=== PATIENT | female | born 1945 | race Caucasian/White ===

== ENCOUNTER 2022-01-08 18:50 | Outpatient (CLI) | payer MEDICARE, OTHER | END 2022-01-08 18:51 | disposition critical access hospital (66) | LOC: EMS 18:50 | DX: S99.912A Unspecified injury of left ankle, initial encounter (principal); W18.49XA Other slipping, tripping and stumbling without falling, initial encounter; Y93.01 Activity, walking, marching and hiking; Y92.008 Other place in unspecified non-institutional (private) residence as the place of occurrence of the external cause | CPT/HCPCS: A0425; A0427 ==

== ENCOUNTER 2022-01-08 19:31 | Emergency (ER) | payer MEDICARE, OTHER ==
--- NOTE | 2022-01-08 21:10 | ED Physician Documentation ---
PD HPI LOWER EXT INJURY - Stated complaint Stated Complaint: L ANKLE INJ - Chief complaint Chief Complaint: Trauma Ext - History obtained from History obtained from: Patient - History of Present Illness PD HPI LOW EXT INJURY LOCATION: Left, Ankle Type of injury: Fall, Twist Where injury occurred: Home Pain level max: 7 Pain level now: 5 Improved by: Rest Worsened by: Moving Associated symptoms: Swelling Contributing factors: Prior ortho surgery - Additional information Additional information: Patient is a 77-year-old female who was at home today when she slipped falling off the deck injuring her left ankle. Worse with movement, better with rest. Mild swelling. She states that she has a history of right ankle fracture with plates. No head injury. No neck or back pain. She lives at home with her 94-year-old . Review of Systems Constitutional: denies: Fever, Chills GI: denies: Vomiting, Diarrhea Skin: denies: Rash Musculoskeletal: denies: Neck pain, Back pain Neurologic: denies: Headache PD PAST MEDICAL HISTORY - Past Medical History Past Medical History: Yes Endocrine/Autoimmune: HyPOthyroidism Psych: Depression - Present Medications Home Medications: Ambulatory Orders Medication Instructions Recorded Confirmed Levothyroxine [Synthroid] 100 mcg PO DAILY 01/08/22 01/08/22 Oxycodone HCl/Acetaminophen 1 - 2 each PO Q6H PRN #14 tablet 01/08/22 [Percocet 5-325 mg Tablet] Sertraline [Zoloft] 25 mg PO DAILY 01/08/22 01/08/22 Triamterene/Hdyrochlor 37.5/25 1 cap PO DAILY 01/08/22 01/08/22 [Dyazide] - Allergies Allergies/Adverse Reactions: Allergies Allergy/AdvReac Type Severity Reaction Status Date / Time No Known Drug Allergies Allergy Verified 01/08/22 19:51 PD ED PE NORMAL - Vitals Vital signs reviewed: Yes - General General: Alert and oriented X 3, No acute distress - HEENT HEENT: Atraumatic, PERRL, Moist mucous membranes - Neck Neck: Supple, no meningeal sign, No bony TTP, C-Spine cleared by NEXUS criteria - Cardiac Cardiac: RRR, Strong equal pulses - Respiratory Respiratory: No respiratory distress, Clear bilaterally - Abdomen Abdomen: Soft, Non tender, Non distended - Back Back: No spinal TTP - Derm Derm: Warm and dry - Extremities Extremities: Other (Tender to palpation diffusely about the left ankle over the lateral and medial malleolus. Mild swelling. Neurovascular intact. No tenderness over the foot, proximal tibia or fibula.) - Neuro Neuro: Alert and oriented X 3, buckle inspector 2-12 intact, No motor deficit, No sensory deficit, Normal speech - Psych Psych: Normal mood, Normal affect Results - Vitals Vitals: Vital Signs - 24 hr 01/08/22 19:41 Temperature 37.9 C Heart Rate 86 Respiratory 18 Rate Blood Pressure 121/68 O2 Saturation 96 Oxygen O2 Source Room air - Rads (name of study) Left ankle x-ray Radiology: Final report received, EMP read contemporaneously, See rad report PD MEDICAL DECISION MAKING - ED course Complexity details: reviewed results, re-evaluated patient, considered differential, d/w patient ED course: Orthopedics is not available tonight. Patient has a fracture that may require surgery. Does not require surgery tonight however. The patient is unable to use crutches or to be completely nonweightbearing on the left lower extremity. Therefore we will place her in a walking boot, have her limit her pressure on the foot as much as possible and have her follow-up with orthopedics for further care. Neurovascular intact. Patient counseled regarding signs and symptoms for which I believe and urgent re-evaluation would be necessary. Patient with good understanding of and agreement to plan and is comfortable going home at this time This document was made in part using voice recognition software. While efforts are made to proofread this document, sound alike and grammatical errors may occur. IMPRESSION: 1. Trimalleolar fracture of the left ankle as described. There is associated slight widening of the ankle mortise medially and distal tibiofibular syndesmosis. Departure - Departure Disposition: 01 Home, Self Care Clinical Impression: Trimalleolar fracture of left ankle Qualifiers: Encounter type: initial encounter Fracture type: closed Qualified Code(s): S 82.852A - Displaced trimalleolar fracture of left lower leg, initial encounter for closed fracture Condition: Good Instructions: ED Fx Ankle General Follow-Up: your,doctor in 1 week [Other] Orthopedic Care [Provider Group] Prescriptions: Oxycodone HCl/Acetaminophen [Percocet 5-325 mg Tablet] 1 - 2 each PO Q6H PRN #14 tablet PRN Reason: pain Comments: You appear to have a ankle fracture called a trimalleolar fracture. There is some slight widening of the ankle joint. Try to stay off of the foot as much as possible. Stay in the boot. Follow-up with orthopedics for further care. There is a chance that this could require surgery. Your prescription was sent to [facility] in [place]. I am prescribing a short course of narcotic pain medication for you. These are potentially dangerous and addictive medications that should be used carefully. These medications may constipate you. Take an jdyt-ahi-frmmifp stool softener (docusate) twice daily with plenty of water while taking these medications. If you go 24 hours without a bowel movement, take ygey-bfh-iggpvke miralax, per package instructions. Do not drink or drive while taking these medications. If you received narcotic or sedating medications while in the emergency department, do not drive for 24 hours. Store this medication in a safe, secure place and out of reach of children. It is a violation of federal law to give or sell this medication to another person or to use in a manner other than prescribed. The ED will not refill narcotic prescriptions, including prescriptions lost or stolen. To dispose of unwanted medications: 1. [facility] [address] [facility] [place] has a medication drop box. They accept prescription medications (in pill form) Tuesday through Tuesday 9:00 a.m. to 5:00 p.m. 2. [facility] [employer] accepts prescription medications (in pill form only) for disposal year round. Call for more information. 3. Contact the [facility] for the next [facility] sponsored prescription drug collection event. , [phone], or [id number]; FINDINGS: Bones: There is a mildly displaced fracture of the medial malleolus extending to the ankle mortise. There is associated slight widening of the ankle mortise medially. There is also a mildly displaced fracture of the distal fibula extending to the distal tibiofibular syndesmosis. There is suggestion of mild syndesmotic widening. There is a mildly displaced fracture of the posterior malleolus of the distal tibia extending to the tibiotalar joint. Soft tissues: There is periarticular soft tissue swelling. No tibiotalar joint effusion. Achilles tendon appears intact.
--- NOTE | 2022-01-08 21:44 | XRAY Report ---
PROCEDURE: Ankle 3 View LT INDICATIONS: fall, ankle pain TECHNIQUE: 3 views of the ankle were acquired. COMPARISON: None. FINDINGS: Bones: There is a mildly displaced fracture of the medial malleolus extending to the ankle mortise. T here is associated slight widening of the ankle mortise medially. There is also a mildly displaced fr acture of the distal fibula extending to the distal tibiofibular syndesmosis. There is suggestion of mild syndesmotic widening. There is a mildly displaced fracture of the posterior malleolus of the dis aleah tibia extending to the tibiotalar joint. Soft tissues: There is periarticular soft tissue swelling. No tibiotalar joint effusion. Achilles t endon appears intact. IMPRESSION: 1. Trimalleolar fracture of the left ankle as described. There is associated slight widening of the a nkle mortise medially and distal tibiofibular syndesmosis. Reviewed by: Nagi Romo MD on 01/08/2022 9:43 PM PDT Approved by: Nagi oRmo MD on 01/08/2022 9:43 PM PDT Station ID: [id number]
[2022-01-08] MEDS ORDERED: oxyCODONE 5 MG TABLET PO STA ×2 (21:50→22:30)
[2022-01-08 22:26] VITALS: BP 135/64
== END 2022-01-08 22:59 | disposition home or self-care (01) ==
LOC: EDUNIT# → ED 19:31
DX: S82.852A Displaced trimalleolar fracture of left lower leg, initial encounter for closed fracture (principal); W17.89XA Other fall from one level to another, initial encounter; Y92.007 Garden or yard of unspecified non-institutional (private) residence as the place of occurrence of the external cause
CPT/HCPCS: 73610; 99283; 99284; A9270

== ENCOUNTER 2022-01-14 11:40 | Outpatient (CLI) | payer MEDICARE ==
--- NOTE | 2022-01-14 15:59 | XRAY Report ---
PROCEDURE: Ankle 3 View LT INDICATIONS: ANKLE FRACTURE TECHNIQUE: 3 views of the ankle were acquired. COMPARISON: 01/08/2022. FINDINGS: Bones: Mildly displaced lateral, medial and posterior malleoli fractures. Soft tissues: No tibiotalar joint effusion. Achilles tendon appears normal. Slight widening of the distal tibiofibular syndesmosis. IMPRESSION: Left trimalleolar fracture. Reviewed by: Genet Fournier MD, PhD on 01/14/2022 3:58 PM PDT Approved by: Genet Fournier MD, PhD on 01/14/2022 3:58 PM PDT Station ID: [id number]
== END 2022-01-14 11:41 | disposition home or self-care (01) ==
LOC: DI.WOS 11:40
PROVIDERS: ATTEND Orthopaedic Surgery
DX: S82.852A Displaced trimalleolar fracture of left lower leg, initial encounter for closed fracture (principal)

== ENCOUNTER 2022-01-21 09:15 | Outpatient (CLI) | payer MEDICARE ==
--- NOTE | 2022-01-21 16:44 | XRAY Report ---
PROCEDURE: Ankle 3 View LT INDICATIONS: ANKLE FRACTURE TECHNIQUE: 3 views of the ankle were acquired. COMPARISON: 01/08/2022 and 01/15/2020. FINDINGS: Bones: Mildly displaced trimalleolar fracture of the left ankle is stable compared to prior exams. Soft tissues: No tibiotalar joint effusion. Achilles tendon appears normal. Soft tissue swelling is noted and ligamentous injury is not excluded. IMPRESSION: Left ankle trimalleolar fracture. Reviewed by: Genet Fournier MD, PhD on 01/21/2022 4:42 PM PDT Approved by: Genet Fournier MD, PhD on 01/21/2022 4:42 PM PDT Station ID: [id number]
== END 2022-01-21 23:59 | disposition home or self-care (01) ==
LOC: DI.WOS 09:15
PROVIDERS: ATTEND Physician Assistant Surgical
DX: S82.852D Displaced trimalleolar fracture of left lower leg, subsequent encounter for closed fracture with routine healing (principal)

== ENCOUNTER 2022-01-28 09:12 | Outpatient (CLI) | payer MEDICARE ==
--- NOTE | 2022-01-28 10:58 | XRAY Report ---
PROCEDURE: Ankle 3 View LT INDICATIONS: ANKLE FX TECHNIQUE: 3 views of the ankle were acquired. COMPARISON: None FINDINGS: Bones: Fracture of the medial and lateral malleolus with mild displacement. There is widening of the tibiofibular syndesmosis which measures 6 mm. Ankle mortise is normally aligned. No suspicious bon y lesions. Soft tissues: No tibiotalar joint effusion. Achilles tendon appears normal. IMPRESSION: Mildly displaced fractures of the medial and lateral malleolus. Reviewed by: Eliud Gutierrez on 01/28/2022 10:56 AM PDT Approved by: Eliud Gutierrez on 01/28/2022 10:56 AM PDT Station ID: [id number]
== END 2022-01-28 23:59 | disposition home or self-care (01) ==
LOC: DI.WOS 09:12
PROVIDERS: ATTEND Physician Assistant Surgical
DX: S82.852D Displaced trimalleolar fracture of left lower leg, subsequent encounter for closed fracture with routine healing (principal)

== ENCOUNTER 2022-02-19 08:00 | Outpatient (CLI) | payer MEDICARE ==
--- NOTE | 2022-02-19 15:58 | XRAY Report ---
PROCEDURE: Ankle 3 View LT INDICATIONS: ANKLE FX TECHNIQUE: 3 views of the ankle were acquired. COMPARISON: 01/08/2022, 01/14/2022, 09/23/2021 and 01/28/2022 FINDINGS: Bones: Please place fractures involving the lateral malleolus, medial malleolus and posterior malleol us. Soft tissues: No tibiotalar joint effusion. Achilles tendon appears normal. IMPRESSION: Left ankle trimalleolar fracture redemonstrated. Reviewed by: Genet Fournier MD, PhD on 02/19/2022 3:56 PM PDT Approved by: Genet Fournier MD, PhD on 02/19/2022 3:56 PM PDT Station ID: [id number]
== END 2022-02-19 23:59 | disposition home or self-care (01) ==
LOC: DI.WOS 08:00
PROVIDERS: ATTEND Physician Assistant Surgical
DX: S82.852A Displaced trimalleolar fracture of left lower leg, initial encounter for closed fracture (principal)

== ENCOUNTER 2022-02-27 20:36 | Emergency (ER) | payer MEDICARE ==
--- NOTE | 2022-02-27 22:58 | XRAY Report ---
PROCEDURE: Shoulder 3 View LT INDICATIONS: fall/pain TECHNIQUE: 3 views of the shoulder were acquired. COMPARISON: None. FINDINGS: Bones: No fractures or dislocations. No suspicious bony lesions. Visualized ribs appear intact. Soft tissues: No suspicious soft tissue calcifications. 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 Reviewed by: Tung Askew MD on 02/27/2022 10:56 PM PDT Approved by: Tung Askew MD on 02/27/2022 10:56 PM PDT Station ID: [id number]
[2022-02-27] MEDS ORDERED: LIDOCAINE PATCH 5% TOP STA (23:28)
--- NOTE | 2022-02-27 23:32 | ED Physician Documentation ---
PD HPI UPPER EXT INJURY - Stated complaint Stated Complaint: GLF/L SHOULDER PX - Chief complaint Chief Complaint: Trauma Ext - History obtained from History obtained from: Patient - Additonal information Additional information: Patient is a 77-year-old female presenting for evaluation of left shoulder pain. She was helping her into the house. She has a walking boot on her left foot due to recent ankle fracture that is almost on healing. They were turning around a corner when he was falling and she fell trying to keep him upright. She landed on her left shoulder. She denies hitting her head or losing consciousness. She does not take a blood thinner. Her is also being evaluated for his fall. He normally uses a walker and has baseline unsteadiness with his gait. Patient denies headache, chest pain, difficulty breathing, abdominal pain.Pain is aching and worse with movements. Review of Systems Constitutional: denies: Fever Nose: denies: Congestion Throat: denies: Sore throat Cardiac: denies: Chest pain / pressure Respiratory: denies: Dyspnea GI: denies: Abdominal Pain : denies: Dysuria Skin: denies: Rash Musculoskeletal: reports: Joint pain (Left shoulder) Neurologic: denies: Generalized weakness, Syncope, Headache PD PAST MEDICAL HISTORY - Past Medical History Past Medical History: Yes Endocrine/Autoimmune: HyPOthyroidism Psych: Depression - Present Medications Home Medications: Ambulatory Orders Medication Instructions Recorded Confirmed Levothyroxine [Synthroid] 100 mcg PO DAILY 01/08/22 02/27/22 Sertraline [Zoloft] 25 mg PO DAILY 01/08/22 02/27/22 Triamterene/Hdyrochlor 37.5/25 1 cap PO DAILY 01/08/22 02/27/22 [Dyazide] - Allergies Allergies/Adverse Reactions: Allergies Allergy/AdvReac Type Severity Reaction Status Date / Time No Known Drug Allergies Allergy Verified 02/27/22 20:49 - Social History Does the pt smoke?: No Smoking Status: Never smoker Does the pt drink ETOH?: No Does the pt have substance abuse?: No - Immunizations Immunizations are current?: Yes - POLST Patient has POLST: No PD ED PE NORMAL - General General: Alert and oriented X 3, No acute distress, Well developed/nourished - HEENT HEENT: Atraumatic, PERRL, EOMI, Moist mucous membranes, Pharynx benign - Neck Neck: Supple, no meningeal sign, No bony TTP, C-Spine cleared by NEXUS criteria - Cardiac Cardiac: RRR, No murmur, Strong equal pulses - Respiratory Respiratory: No respiratory distress, Clear bilaterally - Abdomen Abdomen: Normal bowel sounds, Soft, Non tender, Non distended - Back Back: No spinal TTP - Derm Derm: Warm and dry - Extremities Extremities: Other (Left lower extremity in walking boot). No: No tenderness to palpate - Neuro Neuro: Alert and oriented X 3, jack spooler tender 2-12 intact, No motor deficit, Normal speech PD ED PE EXPANDED - Extremities Extremities: Motor intact, Sensory intact, Vascular intact, Other (Left shoulder tenderness with no deformities, no clavicular tenderness, no tenderness more distally in the left upper extremity or elsewhere. Pain with range of motion, radial pulses intact, normal bacteriology technician strength, distal sensation intact) HIEN UE/Hands Visual: 1 - tenderness Results - Vitals Vitals: Vital Signs - 24 hr 02/27/22 02/27/22 20:43 23:57 Temperature 36.4 C L 36.8 C Heart Rate 76 76 Respiratory 16 16 Rate Blood Pressure 128/59 L 127/88 H O2 Saturation 97 97 Oxygen O2 Source Room air PD MEDICAL DECISION MAKING - ED course ED course: Patient presenting after ground-level fall that appears to be mechanical. Only area of pain is left shoulder. Neurovascularly intact. X-rays negative for fracture or dislocation. Sling applied and patient counseled on continuing with supportive care as well as return precautions. Departure - Departure Disposition: 01 Home, Self Care Clinical Impression: Injury of left shoulder Qualifiers: Encounter type: initial encounter Qualified Code(s): S49.92XA - Unspecified injury of left shoulder and upper arm, initial encounter Condition: Stable Instructions: ED Sprain Shoulder Comments: You were evaluated for an injury to your left shoulder after falling. An x-ray does not show a fracture or dislocation. You can use the sling as needed for comfort but I also want you to remove the sling several times a day to make sure that you are range of motion and get your shoulder to prevent it from becoming frozen. Please follow-up with your primary care doctor in the next week if it is not improving. Please use [id number] medications such as a lidocaine patch or acetaminophen as needed for pain. You can also try ice or heat to the area to see if this helps improve your symptoms. We have any new pains or worsening symptoms please return to the emergency department. Discharge Date/Time: 02/27/22 23:57
[2022-02-27 23:58] VITALS: BP 127/88
== END 2022-02-27 23:57 | disposition home or self-care (01) ==
LOC: ED 20:36
DX: S49.92XA Unspecified injury of left shoulder and upper arm, initial encounter (principal); W18.39XA Other fall on same level, initial encounter; Y92.009 Unspecified place in unspecified non-institutional (private) residence as the place of occurrence of the external cause; E03.9 Hypothyroidism, unspecified; F32.A Depression, unspecified
CPT/HCPCS: 73030; 99282; 99283; A9270

== ENCOUNTER 2023-01-31 10:20 | Outpatient (CLI) | payer MEDICARE ==
[2023-01-31 14:55] LABS: THYROID STIMULATING HORMONE 0.6 uIU/mL (0.34-5.60)
== END 2023-01-31 10:21 | disposition home or self-care (01) ==
LOC: LAB.S 10:20
PROVIDERS: ATTEND Physician Assistant Medical
DX: E03.9 Hypothyroidism, unspecified (principal)
CPT/HCPCS: 36415; 84443

== ENCOUNTER 2023-02-08 10:05 | Outpatient (CLI) | payer MEDICARE ==
--- NOTE | 2023-02-08 12:25 | XRAY Report ---
PROCEDURE: Shoulder 3 View RT INDICATIONS: IMPINGMENT SYNDROME OF RIGHT SHOULDER TECHNIQUE: 3 views of the shoulder were acquired. COMPARISON: None. FINDINGS: Bones: No displaced fracture or dislocation. Moderate glenohumeral and moderate to severe acromiocla vicular degenerative changes. Possible small loose body in the axillary pouch. Soft tissues: No suspicious calcifications. IMPRESSION: Advanced shoulder degenerative changes. If there is high concern for further derangement, consider MR I evaluation. Reviewed by: Shane Serrato MD on 02/08/2023 12:23 PM PDT Approved by: Shane Serrato MD on 02/08/2023 12:23 PM PDT Station ID: [id number]
== END 2023-02-08 10:06 | disposition home or self-care (01) ==
LOC: DI.S 10:05
PROVIDERS: ATTEND Nurse Practitioner Family
DX: M19.011 Primary osteoarthritis, right shoulder (principal)

== ENCOUNTER 2023-02-28 13:30 | Outpatient (CLI) | payer MEDICARE ==
[2023-02-28 20:36] LABS: BASOPHILS % (AUTO) 0.5 %; EOSINOPHILS # (AUTO) 0.3 10^3/uL (0.0-0.7); EOSINOPHILS % (AUTO) 3.1 %; HCT - HEMATOCRIT 45.4 % (37.0-47.0); HGB - HEMOGLOBIN 14.9 g/dL (12.0-16.0); LYMPHOCYTES # (AUTO) 1.9 10^3/uL (1.5-3.5); LYMPHOCYTES % (AUTO) 22.8 %; MEAN CORPUSCULAR HEMOGLOBIN 30.6 pg (27.0-31.0); MEAN CORPUSCULAR HGB CONC 32.8 g/dL (32.0-36.0); MEAN CORPUSCULAR VOLUME 93.2 fL (81.0-99.0); MONOCYTES # (AUTO) 0.6 10^3/uL (0.0-1.0); MONOCYTES % (AUTO) 7.2 %; NEUTROPHILS # (AUTO) 5.3 10^3/uL (1.5-6.6); NEUTROPHILS % (AUTO) 65.7 %; PLT - PLATELET COUNT 263 10^3/uL (130-450); RED BLOOD COUNT 4.87 10^6/uL (4.20-5.40); RED CELL DISTRIBUTION WIDTH 13.5 % (12.0-15.0); WHITE BLOOD COUNT 8.1 x10^3/uL (4.8-10.8)
[2023-02-28 20:51] LABS: ALBUMIN 3.8 g/dL (3.2-5.5); ALBUMIN/GLOBULIN RATIO 1.6 (1.0-2.2); BILIRUBIN,TOTAL 0.9 mg/dL (0.2-1.0); CALCIUM 9.2 mg/dL (8.5-10.3); CREATININE 0.9 mg/dL (0.4-1.0); POTASSIUM 3.3 mmol/L (3.5-5.0); TOTAL PROTEIN 6.2 g/dL (6.7-8.2)
[2023-02-28 21:07] LABS: THYROID STIMULATING HORMONE 1.05 uIU/mL (0.34-5.60)
== END 2023-02-28 13:31 | disposition home or self-care (01) ==
LOC: LAB.S 13:30
PROVIDERS: ATTEND Nurse Practitioner Family
DX: I10 Essential (primary) hypertension (principal); E03.9 Hypothyroidism, unspecified
CPT/HCPCS: 36415; 80053; 84443; 85025

== ENCOUNTER 2023-08-08 12:56 | Outpatient (CLI) | payer MEDICARE ==
[2023-08-08 15:26] LABS: CALCIUM 10.1 mg/dL (8.5-10.3); CREATININE 0.9 mg/dL (0.6-1.3); POTASSIUM 2.9 mmol/L (3.5-4.5)
== END 2023-08-08 12:57 | disposition home or self-care (01) ==
LOC: LAB.S 12:56
PROVIDERS: ATTEND Nurse Practitioner Family
DX: I10 Essential (primary) hypertension (principal); E03.9 Hypothyroidism, unspecified; E87.6 Hypokalemia
CPT/HCPCS: 36415; 80048

== ENCOUNTER 2023-12-14 09:20 | Outpatient (CLI) | payer MEDICARE ==
[2023-12-14 14:41] LABS: BASOPHILS % (AUTO) 0.6 %; EOSINOPHILS # (AUTO) 0.2 10^3/uL (0.0-0.7); EOSINOPHILS % (AUTO) 2.3 %; HCT - HEMATOCRIT 47.5 % (37.0-47.0); HGB - HEMOGLOBIN 15.4 g/dL (12.0-16.0); LYMPHOCYTES # (AUTO) 2.1 10^3/uL (1.5-3.5); LYMPHOCYTES % (AUTO) 29.9 %; MEAN CORPUSCULAR HEMOGLOBIN 30.2 pg (27.0-31.0); MEAN CORPUSCULAR HGB CONC 32.4 g/dL (32.0-36.0); MEAN CORPUSCULAR VOLUME 93.1 fL (81.0-99.0); MEAN PLATELET VOLUME 9.7 fL (7.9-10.8); MONOCYTES # (AUTO) 0.6 10^3/uL (0.0-1.0); MONOCYTES % (AUTO) 9.1 %; NEUTROPHILS % (AUTO) 57.7 %; PLT - PLATELET COUNT 298 10^3/uL (130-450); RED CELL DISTRIBUTION WIDTH 13.2 % (12.0-15.0); WHITE BLOOD COUNT 6.9 x10^3/uL (4.8-10.8)
[2023-12-14 15:12] LABS: THYROID STIMULATING HORMONE 0.42 uIU/mL (0.34-5.60)
[2023-12-14 15:13] LABS: ALBUMIN 4.3 g/dL (3.2-5.5); ALBUMIN/GLOBULIN RATIO 2.3 (1.0-2.2); BILIRUBIN,TOTAL 0.6 mg/dL (0.2-1.0); POTASSIUM 3.3 mmol/L (3.5-4.5); TOTAL PROTEIN 6.2 g/dL (6.4-8.9)
== END 2023-12-14 09:21 | disposition home or self-care (01) ==
LOC: LAB.S 09:20
PROVIDERS: ATTEND Nurse Practitioner Family
DX: E87.6 Hypokalemia (principal); I10 Essential (primary) hypertension; E03.9 Hypothyroidism, unspecified
CPT/HCPCS: 36415; 80053; 84443; 85025

== ENCOUNTER 2024-01-26 12:14 | Outpatient (CLI) | payer MEDICARE ==
[2024-01-26 15:17] LABS: CALCIUM 9.8 mg/dL (8.5-10.3); POTASSIUM 3.3 mmol/L (3.5-4.5)
== END 2024-01-26 12:15 | disposition home or self-care (01) ==
LOC: LAB.S 12:14
PROVIDERS: ATTEND Nurse Practitioner Family
DX: I10 Essential (primary) hypertension (principal); E87.6 Hypokalemia
CPT/HCPCS: 36415; 80048

== ENCOUNTER 2024-04-06 07:55 | Outpatient (CLI) | payer MEDICARE ==
[2024-04-06 16:44] LABS: THYROID STIMULATING HORMONE 2.88 uIU/mL (0.34-5.60)
== END 2024-04-06 07:56 | disposition home or self-care (01) ==
LOC: LAB.S 07:55
DX: R79.89 Other specified abnormal findings of blood chemistry (principal)
CPT/HCPCS: 36415; 84439; 84443; 84480